=== PATIENT | female | born 1970 ===

== ENCOUNTER 2018-04-09 13:20 | Emergency (ER) | payer OTHER ==
--- NOTE | 2018-04-09 14:42 | C.PDOC ---
History Of Present Illness 47 year old female presents to the ED complaining of right great toe pain for 1 week after getting pedicure. She reports she went to see doctor and was told ingrown nail and given Cephalexin to take. She has no improvement and noticed more swelling and pus from area for 2 days. Time Seen by Provider: 04/09/18 13:54 Chief Complaint (Nursing): Lower Extremity Problem/Injury History Per: Patient History/Exam Limitations: no limitations Onset/Duration Of Symptoms: Days Current Symptoms Are (Timing): Still Present - Ankle/Foot Description Of Injury: Other (ingrown nail caused by pedicure ) Past Medical History Reviewed: Historical Data, Nursing Documentation, Vital Signs Vital Signs: Last Vital Signs Temp 98.0 F 04/09/18 16:02 Pulse 89 04/09/18 16:02 Resp 16 04/09/18 16:02 BP 141/79 04/09/18 16:02 Pulse Ox 100 04/09/18 17:07 - Medical History PMH: No Chronic Diseases Surgical History: No Surg Hx Family History: States: No Known Family Hx - Social History Hx Alcohol Use: No Hx Substance Use: No - Immunization History Hx Tetanus Toxoid Vaccination: No Hx Influenza Vaccination: No Hx Pneumococcal Vaccination: No Review Of Systems Except As Marked, All Systems Reviewed And Found Negative. Musculoskeletal: Positive for: Foot Pain (Right great toe pain ) Physical Exam - Physical Exam Appears: Non-toxic, No Acute Distress Skin: Normal Color, Warm, Dry Head: Atraumatic, Normacephalic Eye(s): bilateral: Normal Inspection Neck: Supple Chest: Symmetrical Extremity: Normal ROM, No Deformity, No Swelling Neurological/Psych: Oriented x3, Normal Speech Additional Physical Exam Comments: Right great toe with tenderness, swelling, and erythema; mild purulent drainage from medial nail border. Ingrown nail ED Course And Treatment O2 Sat by Pulse Oximetry: 100 Medical Decision Making Medical Decision Making: Consults: 1415 podiatry resident Zuleyka Garvey at bedside for ingrown nail sr vice president to perform procedure and remove the nail. Explain to patient the need for procedure and risks including bleeding, pain and infection. Consent obtained and documented. Patient tolerated well. 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 - Scribe Statement The provider has reviewed the documentation as recorded by the Scriblai Jernigan All medical record entries made by the Chito were at my direction and personally dictated by me. I have reviewed the chart and agree that the record accurately reflects my personal performance of the history, physical exam, medical decision making, and the department course for this patient. I have also personally directed, reviewed, and agree with the discharge instructions and disposition.
[2018-04-09] MEDS ORDERED: Lidocaine 1% Inj (20ml) INFIL STA (14:44)
[2018-04-09] MEDS ORDERED: Bacitracin 500 Units/gm Oint Foilpak UD TOP ONE (14:44)
--- NOTE | 2018-04-09 14:52 | CP.PCM.CON ---
History of Present Illness - History of Present Illness History of Present Illness: Podiatry Consult note for Dr. lAvarez 47 year old female was seen int he ED for complaint of right great ingrown toenail. Denies any PMHx. She states that she got it a week ago while getting a pedicure. She states that she went to her PMD and was given keflex but statest that the toenail is still red. Admits to more swelling and redness in the past few days. Denies any n/v/f/sob/cp but admtis to chills. She states that she has been taking her abx. Past Patient History - Past Social History Smoking Status: Never Smoked - PSYCHIATRIC Hx Substance Use: No - SURGICAL HISTORY Hx Surgeries: No Meds Allergies/Adverse Reactions: Allergies Allergy/AdvReac Type Severity Reaction Status Date / Time Penicillins Allergy Verified 04/09/18 13:51 Physical Exam - Constitutional Appears: Well, Non-toxic, No Acute Distress - Extremities Exam Additional comments: lower extremity focused exam: vasc: DP and PT pulses palpable 2/4 b/l. CFT < 3 seconds to all digits b/l. Skin temperature warm to warm from proximal to distal b/l. Non-pitting edema noted to right hallux. neuro: gross sensation intact b/l derm: right hallux nail ingrown medial border>lateral border, erythema and edema noted, moderate amount of purulence noted, mild malodor noted ortho: tenderness on palpation to right hallux nail bilateral borders - Neurological Exam Neurological exam: Alert, Oriented x3 - Psychiatric Exam Psychiatric exam: Normal Affect, Normal Mood Results - Vital Signs Recent Vital Signs: Last Vital Signs Temp 98.9 F 04/09/18 13:48 Pulse 71 04/09/18 13:48 Resp 20 04/09/18 13:48 BP 148/84 04/09/18 13:48 Pulse Ox 100 04/09/18 14:45 Assessment & Plan - Assessment and Plan (Free Text) Assessment: 47 year old female with right hallux ingrown toenail, infected Plan: patient examined and evaluated discussed in detail with attending, Dr. Alvarez chart and vitals reviewed verbal and written consent were obtained, the right hallux was cleansed with alcohol and 5 mL of 1% lidocaine was used, next the hallux was cleansed with betadine, utilizing a freer, the hallux nail was freed and then removed with a hemostat, the site was cleansed with saline, dressed with bacitrain and bandage patient to keep dressing c/d/i for 24 hours, then may remove and cover with neosporin and bandaid patient to soak foot for 10 min in warm water and epsoms salts, then dress cont abx per ED PA patient to fu in podiatry clinic in [address] Alvarez
[2018-04-09] MEDS ORDERED: Lidocaine Hydrochloride 5 ML INJ ONE (14:55)
[2018-04-09 16:03] VITALS: BP 141/79; PULSE 89; RESP 16; TEMP 98
[2018-04-09 17:08] VITALS: O2SAT 100
== END 2018-04-09 16:03 | disposition home or self-care (01) ==
LOC: C.ER 13:20
DX: L60.0 Ingrowing nail (principal)